=== PATIENT | female | born 1950 | race Caucasian/White ===

== ENCOUNTER → 2021-06-19 | Outpatient (REF) ==
[~2021-06-19] MED LIST: /AUGM875TA OR; ALEVE PO; CLIN300C PO; POLYSPORIN TOP; PREDPOW10 PO; TYLENOL #3 OR
== END ==
LOC: M LAB 09:51
PROVIDERS: ATTEND Nurse Practitioner Adult Health
DX: Z02.1 Encounter for pre-employment examination (principal)

== ENCOUNTER → 2023-04-15 | Outpatient (REF) | payer OTHER, MEDICARE | LOC: M LAB REF 15:08 | PROVIDERS: ATTEND Surgery | DX: L72.0 Epidermal cyst (principal) ==

== ENCOUNTER → 2025-03-28 | Outpatient (CLI) | payer MEDICARE, OTHER | LOC: M RAD 15:58 | PROVIDERS: ATTEND Orthopaedic Surgery | DX: M79.662 Pain in left lower leg (principal); R22.42 Localized swelling, mass and lump, left lower limb ==

== ENCOUNTER → 2025-07-15 | Outpatient (CLI) | payer MEDICARE, OTHER ==
[2025-07-15 16:12] LABS: BASO # 0.1 10^3/uL (0.0-0.2); BASO % 0.5 % (0.0-1.0); EOS # 0.4 10^3/uL (0.0-0.5); EOS % 4.0 % (0.0-3.0); LYMPH # 2.5 10^3/uL (1.5-5.0); LYMPH % 22.8 % (24.0-44.0); MONO # 0.9 10^3/uL (0.0-0.8); MONO % 8.1 % (2.0-8.0); NEUTROPHILS # 6.9 10^3/uL (1.5-8.5); NEUTROPHILS % 64.2 % (36.0-66.0); PLATELET COUNT, AUTOMATED 438 10^3/uL (150-450)
[2025-07-15 16:35] LABS: IRON (FE) 77 UG/DL (50-170); PERCENT SATURATION 24.4 % (13.2-45.0)
[2025-07-15 16:39] LABS: TOTAL 25(OH) VITAMIN D 93.0 NG/ML (20.0-100.0)
[2025-07-15 16:47] LABS: ALT/SGPT 15 U/L (7.0-40); AST/SGOT 28 U/L (<34); CALCIUM LEVEL 10.0 MG/DL (8.3-10.6); CARBON DIOXIDE LEVEL 29 MMOL/L (20-31); CHLORIDE LEVEL 99 MMOL/L (98-107); CHOLESTEROL LEVEL 169 MG/DL (<200); CHOLESTEROL RISK RATIO 2.69 (<5); CREATININE FOR GFR 0.55 MG/DL (0.55-1.30); GLOMERULAR FILTRATION RATE > 90.0 (>39); LDL CHOLESTEROL 77.3 MG/DL (<100); NON-HDL-C 106.3 MG/DL; POTASSIUM SERUM 4.4 MMOL/L (3.5-5.1); SODIUM LEVEL 138 MMOL/L (136-145); TRIGLYCERIDES LEVEL 145 MG/DL (<150); VITAMIN B12 LEVEL 1732 PG/ML (211-911)
== END ==
LOC: M WUC 11:20
PROVIDERS: ATTEND Physician Assistant Medical
DX: E55.9 Vitamin D deficiency, unspecified (principal); D50.8 Other iron deficiency anemias; R53.83 Other fatigue; Z13.6 Encounter for screening for cardiovascular disorders; E78.00 Pure hypercholesterolemia, unspecified